=== PATIENT | female | born 1935 | race Caucasian/White ===

== ENCOUNTER 2017-10-17 09:27 | Day surgery (SDC) | payer OTHER, MEDICARE ==
--- NOTE | 2017-10-05 14:58 | HP ---
Admitting History and Physical - Primary Care Physician PCP: Davin Cazares - Admission Chief Complaint: Left 3rd toe melanoma History of Present Illness: 82 year old postmenapausal female who had a left third toe pigmented lesion that changed and started to bleed. Punch biopsy revealed a 1.5 mm melanoma without ulceration and 0 mitotic rate. present at peripheral margin. History Source: Patient Limitations to Obtaining History: No Limitations - Past Medical History Cardiovascular: Yes: HTN, Hyperlipdemia Additional Past Medical History: elevated eye pressure - Past Surgical History Past Surgical History: Yes: Hysterectomy (GABE fibroids at age 38) Additional Past Surgical History: total thyroidectomy 1988 cancer - Smoking History Smoking history: Never smoked Have you smoked in the past 12 months: No - Alcohol/Substance Use Hx Alcohol Use: Yes (social) Home Medications - Allergies Allergies/Adverse Reactions: Allergies Allergy/AdvReac Type Severity Reaction Status Date / Time Sulfa (Sulfonamide Allergy Verified 10/05/17 15:01 Antibiotics) epinephrine AdvReac Verified 10/05/17 15:01 Penicillins AdvReac Verified 10/05/17 15:01 - Home Medications Home Medications (free text): simvastatin. spironolactone. metoprolol. 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
[2017-10-12 13:17] VITALS: BMI 22.6
[2017-10-17] MEDS ORDERED: DEXTROSE 5%-0.45% SALINE 1,000 ML IV SCH (10:45)
[2017-10-17] MEDS ORDERED: KETOROLAC TROMETHAMINE 30 MG/1 ML VIAL IVPUSH ONE (10:45)
[2017-10-17] MEDS ORDERED: MIDAZOLAM HCL 2 MG/2 ML SINGLE DOSE VIAL ONE (11:09)
[2017-10-17] MEDS ORDERED: PROPOFOL 20 ML ONE ×2 (11:21)
[2017-10-17] MEDS ORDERED: ISOSULFAN BLUE 10 MG/ML VIAL SQ ONE (11:27)
[2017-10-17] MEDS ORDERED: BUPIVACAINE HCL/PF 0.5% (5MG/ML) 10 ML VIAL ONE (11:27)
[2017-10-17] MEDS ORDERED: LIDOCAINE HCL 1%, 10 MG/ML (20ML VIAL) ONE (11:27)
[2017-10-17] MEDS ORDERED: DEXAMETHASONE SOD PHOSPHATE 4 MG/1 ML VIAL ONE (12:13)
[2017-10-17] MEDS ORDERED: oxyCODONE HCL 5 MG TABLET PO PRN (12:21)
[2017-10-17] MEDS ORDERED: ONDANSETRON 4 MG/2 ML VIAL IVPUSH PRN ×2 (12:21→18:21)
[2017-10-17] MEDS ORDERED: LACTATED RINGERS SOLUTION 1,000 ML IV SCH (12:30)
[2017-10-17 14:51] VITALS: TEMP 97.6
[2017-10-17 16:36] VITALS: BP 126/72; PULSE 68
--- NOTE | 2017-10-17 17:29 | OP ---
DATE OF OPERATION: 10/17/2017 PREOPERATIVE DIAGNOSIS: Melanoma of the left 3rd toe dorsum. POSTOPERATIVE DIAGNOSIS: Melanoma of the left 3rd toe dorsum. PROCEDURE: Left inguinal sentinel node biopsy and amputation of the left toe. ANESTHESIA: General intubated. ATTENDING SURGEON: Ratna Cazares MD MANAGER CLIENT SUPPORT: OXANA Zamora ESTIMATED BLOOD LOSS: Minimal. COMPLICATIONS: None. DESCRIPTION OF PROCEDURE: Patient was made aware of the risks and benefits of the procedure and consented. She was placed in supine position after going to nuclear medicine where lymphoscintigraphy was performed. After general anesthesia was induced, the patient was intubated. One milliliter of 1% isosulfan blue was locally infiltrated into the peritumoral tissues. The operative site was prepped and draped in usual sterile fashion. Using the Neoprobe, 2 areas were identified in the left groin, one above the inguinal ligament and one below. The one above the inguinal ligament was approached first. A transverse oblique incision was made using electrocautery. Tissues were dissected down, which revealed a blue lymphatic coursing towards a blue hot lymph node. This was surgically excised and submitted. In addition, adjacent to this, slightly medial was an additional node that was hot and slightly blue, and this was sharply excised and submitted, and these were together with the other node as left inguinal sentinel node superior. Interrogation of the wound revealed that mostly the counts had dropped. Directly underneath the fascia, there was some moderate uptake, but I felt in an 80-year-old searching for pelvic node was not warranted at this time. Palpation of the axilla and visualization revealed no other suspicious areas. The wound was copiously irrigated with normal saline. Hemostasis maintained by electrocautery. The wound was closed with deep 3-0 Vicryl, followed by a running subcuticular 4-0 Monocryl. The other site in the inguinal region was then identified, and a vertical incision was made over this area. Again, using blunt and sharp dissection, tissues were dissected down, revealing a blue lymph node that was hot. This was surgically excised and submitted as left inguinal sentinel node, inferior. Interrogation of that wound revealed no suspicious palpable nodes, blue dye, or hot areas. This was then closed with deep, interrupted 3-0 Vicryl, followed by a running subcuticular 4-0 Monocryl. Dermabond was then applied to these 2 incisions. The left toe was then approached. An incision was made around the toe, giving over 1 cm margin in the entire malignancy and leaving a posterior plantar flap. Using sharp dissection, the joint was disarticulated at the proximal phalangeal and submitted for permanent sectioning. The metatarsal head was then rongeured to bone. Hemostasis maintained by pressure and electrocautery. Using 2-0 Vicryl, the rongeured tarsal head was covered and 3-0 Vicryl was used to oppose the tissue, and then, the skin was closed with interrupted 2-0 nylon. Sterile dressing applied as well as a posterior splint with Haris wrap to keep it from weightbearing. The patient, having tolerated the procedure well, was transferred to the recovery room in excellent condition. RATNA CAZARES M.D. [id number]
--- NOTE | 2017-10-20 16:09 | PATH ---
Surgical Pathology Report Patient Name: RENATA VENTURA [facility]. Rec. #: [id number] /Age/Gender: 1935 (Age: 82) / F Account: [id number] Location: [facility] Taken: 10/17/2017 Received: 10/17/2017 Reported: 10/20/2017 Physicians: Davin Cazares M.D. Specimen(s) Received A: UPPER LEFT INGUINAL SENTINAL NODE B: LOWER LEFT INGUINAL SENTINAL NODE C: LEFT THIRD TOE Clinical History Left third toe melanoma Final Diagnosis A. UPPER INGUINAL SENTINEL LYMPH NODE, LEFT, EXCISION: ONE BENIGN LYMPH NODE ON H&E, HMB45 AND MELAN-A IMMUNOHISTOCHEMICAL STAINS (0/1) B. LOWER INGUINAL SENTINEL LYMPH NODE, LEFT, EXCISION TWO BENIGN LYMPH NODES ON H&E, HMB45 AND MELAN-A IMMUNOHISTOCHEMICAL STAINS (0/2) C. THIRD TOE, LEFT, AMPUTATION: INVASIVE MELANOMA, NODULAR TYPE. TUMOR MEASURES 7 MM IN GREATEST MICROSCOPIC DIMENSION. TUMOR INVADES TO A DEPTH OF 1.9 MM, DELL LEVEL IV. 2 MITOSIS/MM2 IDENTIFIED. NO LYMPHOVASCULAR OR PERINEURAL INVASION IDENTIFIED. NO FEATURES OF ULCERATION, REGRESSION OR SATELLITOSIS IDENTIFIED. NON-BRISK TUMOR INFILTRATING LYMPHOCYTES PRESENT. MELANOMA IN SITU PRESENT. SKIN, SOFT TISSUE AND BONE SURGICAL MARGINS ARE NEGATIVE FOR IN SITU AND INVASIVE MELANOMA. CLOSEST PERIPHERAL MARGIN IS AT 6 MM. CHANGES OF PRIOR BIOPSY PRESENT. AJCC PATHOLOGIC STAGE: pT2a pN0. SEE INVASIVE SUMMARY BELOW. Comment: Immunohistochemical stains performed at [place], [place] ([id number]) and interpreted at [facility] show the tumor is positive for Melan-A and have focal positivity with HMB45. Prior outside biopsy reviewed ([id number]). Comments Melanoma of skin: Surgical Pathology Cancer Case Summary (Based on AJCC 8th edition) Procedure _X__ Other (specify): Toe Amputation Tumor Site Specify (if known): Third toe Macroscopic Satellite Nodule(s) _X_ Not identified Invasive Melanoma _X_ Nodular melanoma Maximum Tumor (B[place]low) Thickness Specify (millimeters): _1.9_ mm Ulceration _X_ Not identified Microsatellite(s) _X_ Not identified Margins Peripheral Margins _X__ Uninvolved by invasive melanoma Distance of invasive melanoma from closest peripheral margin (millimeters): _6__ mm _X__ Uninvolved by melanoma in situ Distance of melanoma in situ from closest peripheral margin (millimeters): _6__ mm Deep Margin _X__ Uninvolved by invasive melanoma Mitotic Rate _X__ Specify number /mm2 (# mitoses/mm2): 2 Anatomic (Dell) Level _X__ IV (melanoma invades reticular dermis) Lymphovascular Invasion _X__ Not identified Neurotropism _X__ Not identified Tumor-Infiltrating Lymphocytes _X__ Present, non-brisk Tumor Regression _X__ Not identified Pathologic Stage Classification (pTNM, AJCC 8th Edition) Primary Tumor (pT) _X__ pT2a: Melanoma >1.0 to 2.0 mm in thickness, no ulceration Regional Lymph Nodes (pN) _X pN0: No regional lymph node metastasis detected Electronically Signed Dilia Ward M.D. Gross Description A. Received in formalin labeled "upper left inguinal sentinel node," is a 1.7 x 0.7 x 0.3 cm lymph node with attached fat. The specimen is submitted in toto in one cassette. B. Received in formalin labeled "lower left inguinal sentinel node," are 2 lozano lymph nodes measuring 1.0 x 0.5 x 0.5 cm and 2.0 x 1.1 x 0.6 cm. The lymph nodes are bisected and entirely submitted in 3 cassettes as follows: 1-one whole bisected lymph node; 2-3-one bisected lymph node. C. Received in formalin labeled "left third toe," is a 5.3 x 1.8 x 1.5 cm toe amputation specimen. There is a 1.4 cm in length exposed portion of bone at the proximal aspect. The epidermal surface displays a 1.1 x 0.8 cm lozano lesion consistent with a previous biopsy site. The previous biopsy site is 0.6 cm from the skin and soft tissue margin. Pairing Machine Operator sections are submitted in 7 cassettes as follows: 1-shave of skin and soft tissue margin; 2-shave of bone margin, following decalcification; 3-floor representative lesion; [id number] and sequentially submitted (from proximal to distal) remainder of lesion with underlying bone, following decalcification. 10/18/201710/18/2017
== END 2017-10-17 16:00 | disposition home or self-care (01) ==
LOC: FASU 09:27
PROVIDERS: ATTEND Surgery Surgical Oncology
PROC: 0Y6U0Z0 Detachment at Left 3rd Toe, Complete, Open Approach (ICD-10-PCS; principal; 2017-10-17 11:44)
PROC: 07BJ0ZX Excision of Left Inguinal Lymphatic, Open Approach, Diagnostic (ICD-10-PCS; 2017-10-17 11:44)
DX: C43.72 Malignant melanoma of left lower limb, including hip (principal); R59.9 Enlarged lymph nodes, unspecified; I10 Essential (primary) hypertension; E78.5 Hyperlipidemia, unspecified; E89.0 Postprocedural hypothyroidism; Z88.0 Allergy status to penicillin; Z88.2 Allergy status to sulfonamides; H40.059 Ocular hypertension, unspecified eye; Z85.850 Personal history of malignant neoplasm of thyroid; Z90.710 Acquired absence of both cervix and uterus
CPT/HCPCS: 78195-TC; 88307-TC; 88309-TC; 88311-TC; 88341-TC; 94760; A9541